=== PATIENT | female | born 1995 | race African-American/Black ===

== ENCOUNTER 2018-06-10 13:15 | Observation (INO) | payer MEDICAID ==
[2018-06-10 14:19] LABS: CLARITY URINE CLEAR (CLEAR); COLOR URINE YELLOW (YELLOW); KETONES URINE NEGATIVE (NEGATIVE); LEUKOCYTE ESTERASE URINE TRACE (NEGATIVE); NITRITE URINE NEGATIVE (NEGATIVE); OCCULT BLOOD URINE NEGATIVE (NEGATIVE); PROTEIN URINE NEGATIVE (NEGATIVE); SPECIFIC GRAVITY URINE 1.004 (1.005-1.030); UROBILINOGEN URINE 0.2 E.U./dL (0.2-1.0)
[2018-06-10] MEDS ORDERED: ACETAMINOPHEN 325MG TABLET PO NR (16:11)
== END 2018-06-10 17:45 | disposition home or self-care (01) ==
LOC: L&D 13:15
PROVIDERS: ADMIT Obstetrics & Gynecology; ATTEND Obstetrics & Gynecology
DX: O26.892 Other specified pregnancy related conditions, second trimester (principal); K59.00 Constipation, unspecified; R10.9 Unspecified abdominal pain; Z3A.21 21 weeks gestation of pregnancy
CPT/HCPCS: 81003; 99281; G0378

== ENCOUNTER 2021-06-17 15:45 | Emergency (ER) | payer MEDICAID, OTHER ==
[~2021-06-17] VITALS: Ht 152.4 cm; Wt 71.0 kg
[2021-06-17] MEDS ORDERED: PREDNISONE 20MG TABLET PO ONE (17:15)
[2021-06-17] MEDS ORDERED: IBUPROFEN 600MG TABLET PO ONE (17:15)
[2021-06-17 17:32] VITALS: BP 119/86
[2021-06-17] MEDS ORDERED: P20 MT (17:38)
[2021-06-17] MEDS ORDERED: IBUP-2029 MT (17:38)
== END 2021-06-17 17:52 | disposition home or self-care (01) ==
LOC: ER 15:45
DX: J02.8 Acute pharyngitis due to other specified organisms (principal); J45.909 Unspecified asthma, uncomplicated
CPT/HCPCS: 87070; 87430; 99283; J7512